=== PATIENT | male | born 2000 | race Caucasian/White ===

== ENCOUNTER 2025-02-05 23:16 | Emergency (ER) | payer SELFPAY ==
[~2025-02-05] VITALS: Ht 172.7 cm; Wt 71.0 kg
[2025-02-05 23:29] VITALS: O2SAT 98
[2025-02-05 23:32] VITALS: TEMP 36.7
[2025-02-06] MEDS: LIDOCAINE HCL/EPINEPHRINE 1%-EPI 1:100,000 20ML VIAL INFIL ONE (03:45)
[2025-02-06] MEDS: BACITRACIN ZINC OINT UDPKT TOP STA (04:00)
[2025-02-06] MEDS: KETOROLAC 15MG/ML VIAL IM ONE (04:01)
[2025-02-06] MEDS: TETANUS, DIPHTHERIA, PERTUSSIS VAC/PF 0.5ML (>10YR OLD) IM ONE (04:02)
[2025-02-06] MEDS ORDERED: IBUP-1455 MT (06:21)
[2025-02-06] MEDS ORDERED: CEPH500T MT (06:21)
[2025-02-06] MEDS ORDERED: BO1 TP (06:21)
[2025-02-06 06:37] VITALS: BP 144/72; PULSE 62; RESP 16; O2SAT 100
== END 2025-02-06 06:40 | disposition home or self-care (01) ==
LOC: ER 23:16
DX: S61.412A Laceration without foreign body of left hand, initial encounter (principal); X58.XXXA Exposure to other specified factors, initial encounter; Y93.89 Activity, other specified; Y92.89 Other specified places as the place of occurrence of the external cause; Y99.8 Other external cause status
CPT/HCPCS: 99284; 12001; 90715; 90471; 96372; J1885; J2004; 12031

== ENCOUNTER 2025-02-15 08:56 | Emergency (ER) | payer SELFPAY ==
[~2025-02-15] VITALS: Ht 170.2 cm; Wt 77.0 kg
[~2025-02-15 08:56] MED LIST: BO1 TP; CEPH500T MT; IBUP-1455 MT
[2025-02-15 09:11] VITALS: O2SAT 100
[2025-02-15 09:37] VITALS: BP 103/73; PULSE 86; RESP 18; TEMP 36.5; O2SAT 100
== END 2025-02-15 09:38 | disposition home or self-care (01) ==
LOC: ER 08:56
DX: S61.412D Laceration without foreign body of left hand, subsequent encounter (principal); X58.XXXD Exposure to other specified factors, subsequent encounter
CPT/HCPCS: 99282